=== PATIENT | female | born 1935 | race Caucasian/White ===

== ENCOUNTER 2017-04-11 17:28 | Inpatient (IN) | payer MEDICARE ==
[~2017-04-11] VITALS: Ht 167.6 cm; Wt 56.7 kg
[~2017-04-11 17:28] MED LIST: ACET500T68 PO; ALPR0.25 PO; DONE10TA7 PO; ENOX40DI3 SQ; EZET10TA18 PO; HYDR-2758 PO; LISI-334 PO; MEMA28CA PO; POLY17PO29 PO; PRAV40TA2 PO; SERT100T8 PO
--- NOTE | 2017-04-11 18:38 | EKG ---
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
[2017-04-11 18:39] LABS: BASO % 0 % (0-3); EOS % 1 % (0-3); HEMATOCRIT 41.2 % (36.0-47.0); HEMOGLOBIN 13.8 g/dL (12.0-15.5); LYMPH # 1.1 x10^3/uL (1.0-4.8); LYMPH % 14 % (24-48); MEAN CORPUSCULAR HEMOGLOBIN 35 pg (25-35); MEAN CORPUSCULAR HGB CONC 33 g/dL (31-37); MEAN CORPUSCULAR VOLUME 105 fL (79-100); MONO % 8 % (0-9); NEUT % 78 % (31-73); PLATELET COUNT 272 x10^3/uL (140-400); RED BLOOD COUNT 3.92 x10^6/uL (3.50-5.40); RED CELL DISTRIBUTION WIDTH 13.6 % (11.5-14.5)
[2017-04-11 18:40] LABS: BILIRUBIN,URINE MODERATE (NEG); GLUCOSE,URINE NEGATIVE (NEG); NITRITE,URINE NEGATIVE (NEG); PH,URINE 5.5; PROTEIN,URINE 30 mg/dL (NEG-TRACE)
--- NOTE | 2017-04-11 18:42 | PHYS DOC ---
Past Medical History Past Medical History: Anxiety, Depression, High Cholesterol, Hypertension, Other Additional Past Medical Histor: panick attack Past Surgical History: Hysterectomy, Tonsillectomy, Other Additional Past Surgical Histo: carotid surgery, back surgery, sinus X2,LASIX Alcohol Use: None Drug Use: None Adult General Chief Complaint Chief Complaint: ALTERED MENTAL STATUS HPI HPI Patient is a 82 year old female who presents to the emergency department for evaluation lightheadedness and loss of appetite. Patient was brought to the emergency department by her family. The patient is noted to live by herself. Patient has history of dementia currently an early stage. Patient is on oral medication for treatment. Patient's daughter is present with the patient in the emergency department. Patient states that she does have generalized fatigue and has noted that she has had decreased appetite over the past few weeks. Daughter notes that the patient has been spending a significant amount of time in bed and not taking care of herself in her current situation. The daughters concern that the patient may be dehydrated and does not feel that the patient is safe to be living at home. The patient does agree with this as she states that she does feel weak at this time. Patient denies any pain and has not had any known fevers. Patient states that she has felt unsteady on her feet and has had dizziness but denies any recent falls. Review of Systems Review of Systems Constitutional: Lightheadedness, generalized fatigue, denies fever or chills [] Eyes: Denies change in visual acuity, redness, or eye pain [] HENT: Denies nasal congestion or sore throat [] Respiratory: Denies cough or shortness of breath [] Cardiovascular: Denies chest pain or edema[] GI: Anorexia, denies abdominal pain, nausea, vomiting, bloody stools or diarrhea [] : Denies dysuria or hematuria [] Musculoskeletal: Denies back pain or joint pain [] Integument: Denies rash or skin lesions [] Neurologic: Denies headache, focal weakness or sensory changes [] All other systems were reviewed and found to be within normal limits, except as documented in this note. Allergies Allergies Allergies Coded Allergies Type Severity Reaction Last Updated Verified aspirin Allergy Intermediate 08/16/15 No Physical Exam Physical Exam Constitutional: Alert, afebrile, no acute distress. [] HENT: Normocephalic, atraumatic, bilateral external ears normal, oropharynx dry , no oral exudates, nose normal. [] Eyes: PERRLA, EOMI, conjunctiva normal, no discharge. [] Neck: Normal range of motion, no tenderness, supple, no stridor. [] Cardiovascular:Heart rate regular rhythm, no murmur [] Lungs & Thorax: Bilateral breath sounds clear to auscultation [] Abdomen: Bowel sounds normal, soft, no tenderness, no masses, no pulsatile masses. [] Skin: Warm, dry, no erythema, no rash. [] Back: No tenderness, no CVA tenderness. [] Extremities: No tenderness, no cyanosis, no clubbing, ROM intact, no edema. [] Neurologic: Alert and oriented X 3, normal motor function, normal sensory function, no focal deficits noted. [] Current Patient Data Vital Signs Vital Signs Date Time Temp Pulse Resp B/P (MAP) Pulse Ox O2 Delivery O2 Flow Rate FiO2 04/11/17 18:00 97.9 69 18 152/69 (96) 97 Room Air 97.9 Lab Values Laboratory Tests Test 04/11/17 18:00 04/11/17 18:07 Urine Collection Type Unknown Urine Color Paty Urine Clarity Cloudy Urine pH 5.5 Urine Specific [place] >=1.030 Urine Protein 30 mg/dL (NEG-TRACE) Urine Glucose (UA) Negative mg/dL (NEG) Urine Ketones (Stick) Trace mg/dL (NEG) Urine Blood Negative (NEG) Urine Nitrite Negative (NEG) Urine Bilirubin Moderate (NEG) Urine Urobilinogen Dipstick 1.0 mg/dL (0.2 mg/dL) Urine Leukocyte Esterase Large (NEG) Urine RBC 0 /HPF (0-2) Urine WBC Tntc /HPF (0-4) Urine Transitional Epithelial Cells Mod /LPF Urine Bacteria 0 /HPF (0-FEW) Urine Hyaline Casts Many /HPF Urine Mucus Marked /LPF White Blood Count 8.0 x10^3/uL (4.0-11.0) Red Blood Count 3.92 x10^6/uL (3.50-5.40) Hemoglobin 13.8 g/dL (12.0-15.5) Hematocrit 41.2 % (36.0-47.0) Mean Corpuscular Volume 105 fL (79-100) H Mean Corpuscular Hemoglobin 35 pg (25-35) Mean Corpuscular Hemoglobin Concent 33 g/dL (31-37) Red Cell Distribution Width 13.6 % (11.5-14.5) Platelet Count 272 x10^3/uL (140-400) Neutrophils (%) (Auto) 78 % (31-73) H Lymphocytes (%) (Auto) 14 % (24-48) L Monocytes (%) (Auto) 8 % (0-9) Eosinophils (%) (Auto) 1 % (0-3) Basophils (%) (Auto) 0 % (0-3) Neutrophils # (Auto) 6.3 x10^3uL (1.8-7.7) Lymphocytes # (Auto) 1.1 x10^3/uL (1.0-4.8) Monocytes # (Auto) 0.6 x10^3/uL (0.0-1.1) Eosinophils # (Auto) 0.0 x10^3/uL (0.0-0.7) Basophils # (Auto) 0.0 x10^3/uL (0.0-0.2) Sodium Level 141 mmol/L (136-145) Potassium Level 4.1 mmol/L (3.5-5.1) Chloride Level 103 mmol/L (98-107) Carbon Dioxide Level 27 mmol/L (21-32) Anion Gap 11 (6-14) Blood Urea Nitrogen 29 mg/dL (7-20) H Creatinine 1.3 mg/dL (0.6-1.0) H Estimated GFR (Cockcroft-Gault) 39.0 BUN/Creatinine Ratio 22 (6-20) H Glucose Level 133 mg/dL (70-99) H Calcium Level 9.1 mg/dL (8.5-10.1) Magnesium Level 1.9 mg/dL (1.8-2.4) Total Bilirubin 0.6 mg/dL (0.2-1.0) Aspartate Amino Transferase (AST) 22 U/L (15-37) Alanine Aminotransferase (ALT) 22 U/L (14-59) Alkaline Phosphatase 74 U/L (46-116) Total Protein 7.4 g/dL (6.4-8.2) Albumin 4.0 g/dL (3.4-5.0) Albumin/Globulin Ratio 1.2 (1.0-1.7) Urine Opiates Screen Neg (NEG) Urine Methadone Screen Neg (NEG) Urine Barbiturates Neg (NEG) Urine Phencyclidine Screen Neg (NEG) Urine Amphetamine/Methamphetamine Neg (NEG) Urine Benzodiazepines Screen Pos (NEG) Urine Cocaine Screen Neg (NEG) Urine Cannabinoids Screen Neg (NEG) Urine Ethyl Alcohol Neg (NEG) Laboratory Tests 04/11/17 18:07 Laboratory Tests 04/11/17 18:07 EKG EKG Interpreted by me: Heart rate 61, sinus rhythm, normal intervals, normal axis, no acute ST/T-wave abnormalities present[] Radiology/Procedures Radiology/Procedures Not performed[] Course & Med Decision Making Course & Med Decision Making Pertinent Labs and Imaging studies reviewed. (See chart for details) Patient's lab work shows evidence of dehydration as well as urinary tract infection. Patient started on Rocephin in the emergency department. The patient will continue on IV fluids and Rocephin for treatment. Patient admitted to Dr. Camejo. Eagle Disclaimer Eagle Disclaimer This electronic medical record was generated, in whole or in part, using a voice recognition dictation system. Departure Departure Impression: Primary Impression: Urinary tract infection Additional Impressions: Generalized weakness Dehydration Disposition: ADMITTED INPATIENT Admitting Physician: Other Condition: STABLE Referrals: RUSSELL LAL MD (PCP) Problem Qualifiers Primary Impression: Urinary tract infection Urinary tract infection type: site unspecified Hematuria presence: without hematuria Qualified Codes: N39.0 - Urinary tract infection, site not specified XIMENA DUTTA MD Apr 11, 2017 18:42
[2017-04-11 18:46] LABS: BARBITURATES NEG (NEG); BENZODIAZEPINES POS (NEG); CANNABINOIDS NEG (NEG); COCAINE NEG (NEG); METHADONE NEG (NEG); OPIATES NEG (NEG); PHENCYCLIDINE NEG (NEG)
[2017-04-11 18:54] LABS: RBC,URINE 0 /HPF (0-2); WBC,URINE TNTC /HPF (0-4)
[2017-04-11 18:55] LABS: BACTERIA,URINE 0 /HPF (0-FEW)
[2017-04-11 18:56] LABS: CALCIUM 9.1 mg/dL (8.5-10.1); CREATININE 1.3 mg/dL (0.6-1.0); POTASSIUM 4.1 mmol/L (3.5-5.1)
[2017-04-11 19:05] LABS: ALBUMIN/GLOBULIN RATIO 1.2 (1.0-1.7); MAGNESIUM 1.9 mg/dL (1.8-2.4); TOTAL BILIRUBIN 0.6 mg/dL (0.2-1.0); TOTAL PROTEIN 7.4 g/dL (6.4-8.2)
[2017-04-11] MEDS ORDERED: ACETAMINOPHEN 325 MG TABLET. PO PRN (20:15)
[2017-04-11] MEDS ORDERED: ONDANSETRON PF 4 MG/2 ML VIAL. IV PRN (20:15)
[2017-04-11] MEDS: IV NORMAL SALINE 1000ML BAG 1,000 ML IV SCH (20:36)
[2017-04-11] MEDS: cefTRIAXone IV Push 1 GM VIAL. IVP SCH (22:05)
[2017-04-11 23:00] VITALS: BP 135/60
[2017-04-11] MEDS ORDERED: MEMA1CAP3 (23:03)
[2017-04-11] MEDS ORDERED: EZET10TA26 PO (23:03)
[2017-04-11] MEDS ORDERED: ALPR1TAB6 PO (23:03)
[2017-04-11] MEDS ORDERED: ACETAMINOPHEN 500 MG TABLET PO PRN (23:45)
--- NOTE | 2017-04-12 00:07 | HP ---
ADMIT DATE: 04/11/2017 CHIEF COMPLAINT: Confusion. HISTORY OF PRESENT ILLNESS: The patient is an 82-year-old woman who was brought in by her family with lightheadedness, loss of appetite and increased confusion. The patient actually lives by herself despite having a history of dementia. The patient herself relates that she has been fatigued, decreased appetite over the past few weeks, although this may actually been more months and years. Daughter feels like the patient is not safe living at home and the patient at this time agrees. The patient herself denies any fevers, chills, focal weakness, but does have generalized weakness with unsteadiness on her feet as well as some dizziness, but denies any recent fall. In the Emergency Room, she was diagnosed with dehydration as well as signs of UTI and is therefore admitted for further management. PAST MEDICAL HISTORY: Anxiety, depression and hyperlipidemia. Pelvic fracture after fall. PAST SURGICAL HISTORY: She is status post hysterectomy. FAMILY HISTORY: Positive for diabetes. SOCIAL HISTORY: Lives by herself. No toxic habits. Of note, all histories were obtained from chart as the patient cannot recall details. ALLERGIES: ASPIRIN. MEDICATIONS: MAR reconciled with home medications. REVIEW OF SYSTEMS: The patient is pleasantly confused, cannot remember why she is here. She denies any symptoms in entire organ system review. PHYSICAL EXAMINATION: VITAL SIGNS: From today show a blood pressure of 152/69, heart rate of 69, respiratory rate at 18, she is afebrile. GENERAL: This is an 82-year-old malnourished, frail appearing woman, alert, not oriented to time or place, in no acute distress. HEENT: Shows no scleral icterus. NECK: Supple. LUNGS: Clear bilaterally. HEART: Regular rate and rhythm without any murmurs. ABDOMEN: Positive bowel sounds. EXTREMITIES: Show no edema. SKIN: Warm, soft and dry without any rash. LABORATORY DATA: CBC with a WBC of 8.0, hemoglobin 13.8, MCV of 105, platelets of 272. Chemistries with a BUN and creatinine of 29 and 1.3, normal electrolytes, normal LFTs. Tox screen positive for benzodiazepines. Urine with TNTC wbc's, but 0 bacteria and marked mucus and moderate transitional epithelial cells. Specific gravity is greater than 1.030. IMAGING STUDIES: None. ASSESSMENT AND PLAN: The patient is an 82-year-old woman who is slowly failing at home. The patient and family feel her to be unsafe alone by herself. She is brought in by family and has been found with a potential urinary tract infection. We will get case management involved. With acute issues, there may be a component of encephalopathy on top of her chronic dementia. Also, we will have Occupational Therapy, Physical Therapy evaluate her as to her safety level. Suspect she may benefit from rehabilitation before a permanent placement is found for her. I will continue all her home medications. We will hold off on standing order benzodiazepine in favor of p.r.n. only. EDDIE DALEY MD DR: UR/nts JOB#: [id number] / [id number] RUSSELL Gamino MD MTDD
[2017-04-12 03:00] VITALS: BP 133/63
[2017-04-12 04:19] LABS: BASO % 0 % (0-3); EOS % 1 % (0-3); HEMATOCRIT 35.8 % (36.0-47.0); HEMOGLOBIN 12.1 g/dL (12.0-15.5); LYMPH # 1.3 x10^3/uL (1.0-4.8); LYMPH % 19 % (24-48); MEAN CORPUSCULAR HEMOGLOBIN 35 pg (25-35); MEAN CORPUSCULAR HGB CONC 34 g/dL (31-37); MEAN CORPUSCULAR VOLUME 105 fL (79-100); MONO % 9 % (0-9); NEUT % 71 % (31-73); PLATELET COUNT 207 x10^3/uL (140-400); RED BLOOD COUNT 3.43 x10^6/uL (3.50-5.40); RED CELL DISTRIBUTION WIDTH 13.7 % (11.5-14.5); WHITE BLOOD COUNT 7.1 x10^3/uL (4.0-11.0)
[2017-04-12 04:39] LABS: CALCIUM 8.4 mg/dL (8.5-10.1); GFR 52.8; POTASSIUM 3.9 mmol/L (3.5-5.1)
[2017-04-12] MEDS: IV NORMAL SALINE 1000ML BAG 1,000 ML IV SCH (05:49)
[2017-04-12 07:00] VITALS: BP 118/65
[2017-04-12] MEDS: EZETIMIBE 10 MG TABLET. PO SCH (09:29)
[2017-04-12] MEDS: SERTRALINE 50 MG TABLET. PO SCH (09:29)
[2017-04-12] MEDS: POLYETHYLENE GLYCOL 3350 17 GM PACKET. PO SCH (09:29)
[2017-04-12] MEDS: LISINOPRIL 20 MG TABLET PO SCH (09:29)
[2017-04-12 11:00] VITALS: BP 90/49
[2017-04-12] MEDS ORDERED: ACETAMINOPHEN 325 MG TABLET. PO PRN (12:27)
[2017-04-12] MEDS ORDERED: CEFPODOXIME PROXETIL 100 MG TABLET. PO SCH (13:00)
--- NOTE | 2017-04-12 13:01 | PDOC ---
PROGRESS NOTES Chief Complaint Chief Complaint FTT ASSESSMENT AND PLAN: 1. FTT: OT/PT/nutrition silvana. SW for placement 2. Dementia: advanced. pleasantly confused and solidly living in her 20s- 30s. minimize sedatives. 3. ?UTI: urin cult pending. empiric ceftriax History of Present Illness History of Present Illness pleasantly confused. no c/o. does recall that she is here to go to rehab as she can't function at home anymore Vitals Vitals Vital Signs Date Time Temp Pulse Resp B/P (MAP) Pulse Ox O2 Delivery O2 Flow Rate FiO2 04/12/17 11:00 97.4 55 18 90/49 (63) 99 Room Air 97.4 Physical Exam General: Alert, Cooperative, No acute distress Heart: Regular rate Lungs: Wheezing Labs LABS Laboratory Tests Test 04/11/17 18:00 04/11/17 18:07 04/12/17 04:05 Urine Collection Type Unknown Urine Color Paty Urine Clarity Cloudy Urine pH 5.5 Urine Specific [place] >=1.030 Urine Protein 30 mg/dL (NEG-TRACE) Urine Glucose (UA) Negative mg/dL (NEG) Urine Ketones (Stick) Trace mg/dL (NEG) Urine Blood Negative (NEG) Urine Nitrite Negative (NEG) Urine Bilirubin Moderate (NEG) Urine Urobilinogen Dipstick 1.0 mg/dL (0.2 mg/dL) Urine Leukocyte Esterase Large (NEG) Urine RBC 0 /HPF (0-2) Urine WBC Tntc /HPF (0-4) Urine Transitional Epithelial Cells Mod /LPF Urine Bacteria 0 /HPF (0-FEW) Urine Hyaline Casts Many /HPF Urine Mucus Marked /LPF White Blood Count 8.0 x10^3/uL (4.0-11.0) 7.1 x10^3/uL (4.0-11.0) Red Blood Count 3.92 x10^6/uL (3.50-5.40) 3.43 x10^6/uL (3.50-5.40) Hemoglobin 13.8 g/dL (12.0-15.5) 12.1 g/dL (12.0-15.5) Hematocrit 41.2 % (36.0-47.0) 35.8 % (36.0-47.0) Mean Corpuscular Volume 105 fL (79-100) 105 fL (79-100) Mean Corpuscular Hemoglobin 35 pg (25-35) 35 pg (25-35) Mean Corpuscular Hemoglobin Concent 33 g/dL (31-37) 34 g/dL (31-37) Red Cell Distribution Width 13.6 % (11.5-14.5) 13.7 % (11.5-14.5) Platelet Count 272 x10^3/uL (140-400) 207 x10^3/uL (140-400) Neutrophils (%) (Auto) 78 % (31-73) 71 % (31-73) Lymphocytes (%) (Auto) 14 % (24-48) 19 % (24-48) Monocytes (%) (Auto) 8 % (0-9) 9 % (0-9) Eosinophils (%) (Auto) 1 % (0-3) 1 % (0-3) Basophils (%) (Auto) 0 % (0-3) 0 % (0-3) Neutrophils # (Auto) 6.3 x10^3uL (1.8-7.7) 5.0 x10^3uL (1.8-7.7) Lymphocytes # (Auto) 1.1 x10^3/uL (1.0-4.8) 1.3 x10^3/uL (1.0-4.8) Monocytes # (Auto) 0.6 x10^3/uL (0.0-1.1) 0.7 x10^3/uL (0.0-1.1) Eosinophils # (Auto) 0.0 x10^3/uL (0.0-0.7) 0.0 x10^3/uL (0.0-0.7) Basophils # (Auto) 0.0 x10^3/uL (0.0-0.2) 0.0 x10^3/uL (0.0-0.2) Sodium Level 141 mmol/L (136-145) 142 mmol/L (136-145) Potassium Level 4.1 mmol/L (3.5-5.1) 3.9 mmol/L (3.5-5.1) Chloride Level 103 mmol/L (98-107) 107 mmol/L (98-107) Carbon Dioxide Level 27 mmol/L (21-32) 27 mmol/L (21-32) Anion Gap 11 (6-14) 8 (6-14) Blood Urea Nitrogen 29 mg/dL (7-20) 27 mg/dL (7-20) Creatinine 1.3 mg/dL (0.6-1.0) 1.0 mg/dL (0.6-1.0) Estimated GFR (Cockcroft-Gault) 39.0 52.8 BUN/Creatinine Ratio 22 (6-20) Glucose Level 133 mg/dL (70-99) 119 mg/dL (70-99) Calcium Level 9.1 mg/dL (8.5-10.1) 8.4 mg/dL (8.5-10.1) Magnesium Level 1.9 mg/dL (1.8-2.4) Total Bilirubin 0.6 mg/dL (0.2-1.0) Aspartate Amino Transf (AST/SGOT) 22 U/L (15-37) Alanine Aminotransferase (ALT/SGPT) 22 U/L (14-59) Alkaline Phosphatase 74 U/L (46-116) Total Protein 7.4 g/dL (6.4-8.2) Albumin 4.0 g/dL (3.4-5.0) Albumin/Globulin Ratio 1.2 (1.0-1.7) Urine Opiates Screen Neg (NEG) Urine Methadone Screen Neg (NEG) Urine Barbiturates Neg (NEG) Urine Phencyclidine Screen Neg (NEG) Urine Amphetamine/Methamphetamine Neg (NEG) Urine Benzodiazepines Screen Pos (NEG) Urine Cocaine Screen Neg (NEG) Urine Cannabinoids Screen Neg (NEG) Urine Ethyl Alcohol Neg (NEG) EDDIE DALEY MD Apr 12, 2017 13:01
[2017-04-12 15:00] VITALS: BP 120/56
[2017-04-12] MEDS: ALPRAZolam 0.25 MG TABLET PO PRN ×2 (15:40→19:46)
[2017-04-12 19:21] VITALS: BP 92/48
[2017-04-12] MEDS: cefTRIAXone IV Push 1 GM VIAL. IVP SCH ×2 (19:45→22:35)
[2017-04-12] MEDS: HYDROcodone/APAP 5/325MG 1 TAB TABLET PO PRN (19:46)
[2017-04-12] MEDS: ATORVASTATIN CALCIUM 10 MG TABLET. PO SCH (19:46)
[2017-04-12] MEDS: LACTOBACILLUS RHAMNOSUS GG 1 CAPSULE. PO SCH (19:47)
[2017-04-12] MEDS ORDERED: HALOPERIDOL LACTATE 5 MG/ML VIAL. IVP PRN (21:00)
[2017-04-12 23:19] VITALS: BP 85/51
[2017-04-13] VITALS (9 sets, daily range): BP systolic 81–126; BP diastolic 41–102
[2017-04-13] MEDS: LACTOBACILLUS RHAMNOSUS GG 1 CAPSULE. PO SCH ×2 (08:16→20:54)
[2017-04-13] MEDS: LISINOPRIL 20 MG TABLET PO SCH (08:16)
[2017-04-13] MEDS: EZETIMIBE 10 MG TABLET. PO SCH (08:16)
[2017-04-13] MEDS: POLYETHYLENE GLYCOL 3350 17 GM PACKET. PO SCH (08:16)
[2017-04-13] MEDS: SERTRALINE 50 MG TABLET. PO SCH (08:16)
[2017-04-13] MEDS ORDERED: IV NORMAL SALINE 1000ML BAG 1,000 ML IV ONE ×2 (11:45→14:30)
--- NOTE | 2017-04-13 13:53 | PDOC ---
PROGRESS NOTES Chief Complaint Chief Complaint FTT ASSESSMENT AND PLAN: 1. FTT: OT/PT/nutrition silvana. SW for placement 2. Dementia: advanced. pleasantly confused and solidly living in her 20s- 30s. minimize sedatives. 3. ?UTI: urine cult pending. empiric ceftriax 4. Orthostasis: IVF bolus; recheck post. encourage PO intake; hold BP meds History of Present Illness History of Present Illness pleasantly confused. daughter at bed side. sl dizzy with standing up. Vitals Vitals Vital Signs Date Time Temp Pulse Resp B/P (MAP) Pulse Ox O2 Delivery O2 Flow Rate FiO2 04/13/17 12:44 93/59 (70) 04/13/17 11:19 98 04/13/17 08:00 Room Air 04/13/17 07:00 98.1 17 96 98.1 Physical Exam General: Alert, Cooperative, No acute distress Heart: Regular rate Lungs: Wheezing Extremities: No edema Skin: No rashes EDDIE DALEY MD Apr 13, 2017 13:53
[2017-04-13] MEDS: ATORVASTATIN CALCIUM 10 MG TABLET. PO SCH (20:54)
[2017-04-13] MEDS: HYDROcodone/APAP 5/325MG 1 TAB TABLET PO PRN (20:54)
[2017-04-14 03:31] VITALS: BP 129/86
[2017-04-14 07:34] VITALS: BP 101/59
[2017-04-14] MEDS: EZETIMIBE 10 MG TABLET. PO SCH (08:53)
[2017-04-14] MEDS: SERTRALINE 50 MG TABLET. PO SCH (08:53)
[2017-04-14] MEDS: POLYETHYLENE GLYCOL 3350 17 GM PACKET. PO SCH (08:53)
[2017-04-14] MEDS: LACTOBACILLUS RHAMNOSUS GG 1 CAPSULE. PO SCH ×2 (08:53→21:27)
[2017-04-14] MEDS: LISINOPRIL 20 MG TABLET PO SCH (08:54)
[2017-04-14 10:43] VITALS: BP 96/49
[2017-04-14] MEDS ORDERED: HYDR-2758 PO (14:03)
[2017-04-14 15:18] VITALS: BP 101/56
[2017-04-14 19:44] VITALS: BP 96/48
[2017-04-14] MEDS: ATORVASTATIN CALCIUM 10 MG TABLET. PO SCH (21:27)
[2017-04-14] MEDS: HYDROcodone/APAP 5/325MG 1 TAB TABLET PO PRN (21:27)
[2017-04-14 23:52] VITALS: BP 114/71
[2017-04-15 03:57] VITALS: BP 117/74
[2017-04-15 07:20] VITALS: BP 105/65
[2017-04-15] MEDS: POLYETHYLENE GLYCOL 3350 17 GM PACKET. PO SCH (09:00)
[2017-04-15] MEDS: EZETIMIBE 10 MG TABLET. PO SCH (09:16)
[2017-04-15] MEDS: LISINOPRIL 20 MG TABLET PO SCH (09:16)
[2017-04-15] MEDS: SERTRALINE 50 MG TABLET. PO SCH (09:17)
[2017-04-15] MEDS: LACTOBACILLUS RHAMNOSUS GG 1 CAPSULE. PO SCH ×2 (09:17→21:25)
[2017-04-15 10:40] VITALS: BP 93/42
[2017-04-15] MEDS ORDERED: FLUDROCORTISONE 0.1 MG TABLET PO SCH (12:00)
[2017-04-15 14:36] VITALS: BP 76/47
[2017-04-15] MEDS ORDERED: IV NORMAL SALINE 500ML BAG 500 ML IV ONE (14:45)
--- NOTE | 2017-04-15 16:43 | PDOC ---
PROGRESS NOTES Chief Complaint Chief Complaint FTT Plz note: late entry; pt seen with plansfor d/c, but aborted late 2/2 nonacceptance in [place] ASSESSMENT AND PLAN: 1. FTT: OT/PT rec for rehab. DOTTIE workig on placement at 2. Dementia: advanced. pleasantly confused 3. ?UTI: urine cult neg empiric ceftriax stopped 4. Orthostasis: IVF bolus; recheck post. encourage PO intake; hold BP meds History of Present Illness History of Present Illness no dizziness, no LAYNE or other c/o Vitals Vitals Vital Signs Date Time Temp Pulse Resp B/P (MAP) Pulse Ox O2 Delivery O2 Flow Rate FiO2 04/15/17 14:36 97.6 73 18 76/47 (57) 98 Room Air 97.6 Physical Exam General: Alert, Cooperative, No acute distress Heart: Regular rate Lungs: Wheezing Extremities: No edema Skin: No rashes Nutrition Consultation Dietary Evaluation: Recommendations by RD: Increase Calorie Intake, Protein supplementation Comments: boost plus tid Expected Outcomes/Goals: to meet > 75% est nutr needs Malnutrition Findings: Weight Status: Appropriate EDDIE DALEY MD Apr 15, 2017 16:43
--- NOTE | 2017-04-15 16:48 | PDOC ---
PROGRESS NOTES Chief Complaint Chief Complaint FTT ASSESSMENT AND PLAN: 1. FTT: OT/PT rec for rehab. SW working on placement at 2. Dementia: advanced. pleasantly confused 3. ?UTI: urine cult neg, empiric ceftriax stopped 4. hypotension: asymptomatic. hold antihypertensives; start midodrine History of Present Illness History of Present Illness doing well. no c/o Vitals Vitals Vital Signs Date Time Temp Pulse Resp B/P (MAP) Pulse Ox O2 Delivery O2 Flow Rate FiO2 04/15/17 14:36 97.6 73 18 76/47 (57) 98 Room Air 97.6 Physical Exam General: Alert, Cooperative, No acute distress Heart: Regular rate Lungs: Wheezing Extremities: No edema Skin: No rashes Comment Review of Relevant I have reviewed the following items violette (where applicable) has been applied. Labs Microbiology 04/11/17 Urine Culture - Final, Complete 04/11/17 Urine Culture Result 1 (FELICITA) - Final, Complete Medications Current Medications Ondansetron HCl (Zofran) 4 mg PRN Q8HRS PRN IV NAUSEA/VOMITING; Start 04/11/17 at 20:15; Stop 04/12/17 at 20:14; Status DC Sodium Chloride 1,000 ml @ 125 mls/hr Q8H IV Last administered on 04/12/17t 05:49; Start 04/11/17 at 21:00; Stop 04/12/17 at 15:16; Status DC Acetaminophen (Tylenol) 650 mg PRN Q4HRS PRN PO FEVER; Start 04/11/17 at 20:15 ; Stop 04/12/17 at 12:27; Status DC Ceftriaxone Sodium 1 gm/ Dextrose 50 ml @ 100 mls/hr Q24H IV ; Start 04/11/17 at 20:15; Status UNV Ceftriaxone Sodium (Rocephin) 1 gm Q24H IVP Last administered on 04/12/17t 22: 35; Start 04/11/17 at 21:00; Stop 04/13/17 at 15:00; Status DC Acetaminophen (Tylenol) 650 mg PRN Q6HRS PRN PO MILD PAIN; Start 04/11/17 at 23 :45; Stop 04/12/17 at 12:27; Status DC Alprazolam (Xanax) 0.25 mg TID PRN PRN PO ANXIETY / AGITATION Last administered on 04/12/17 19:46; Start 04/11/17 at 23:45 EZETIMIBE (Zetia) 10 mg DAILY PO Last administered on 04/15/17 09:16; Start 04/12/17 at 09:00 Acetaminophen/ Hydrocodone Bitart (Lortab 5/325) 1 tab PRN Q6HRS PRN PO MODERATE PAIN Last administered on 04/14/17 21:27; Start 04/11/17 at 23:45 Lisinopril (Prinivil) 20 mg DAILY PO Last administered on 04/12/17 09:29; Start 04/12/17 at 09:00; Stop 04/13/17 at 13:50; Status DC Polyethylene Glycol (miraLAX PACKET) 17 gm DAILY PO Last administered on 08:53; Start 04/12/17 at 09:00 Atorvastatin Calcium (Lipitor) 10 mg QHS PO Last administered on 04/14/17 21: 27; Start 04/12/17 at 21:00 Sertraline HCl (Zoloft) 100 mg DAILY PO Last administered on 04/15/17 09:17; Start 04/12/17 at 09:00 Acetaminophen (Tylenol) 650 mg PRN Q6HRS PRN PO MILD PAIN / TEMP; Start at 12:27 Cefpodoxime Proxetil (Vantin) 100 mg BID PO ; Start 04/12/17 at 13:00; Stop at 13:01; Status DC Lactobacillus Rhamnosus (Culturelle) 1 cap BID PO Last administered on 09:17; Start 04/12/17 at 21:00 Lorazepam (Ativan) 1 mg PRN Q2HRS PRN IV ANXIETY / AGITATION Last administered on 04/12/17 21:59; Start 04/12/17 at 21:00 Haloperidol Lactate (Haldol) 5 mg PRN Q8HRS PRN IVP AGITATION; Start 04/12/17 at 21:00 Sodium Chloride 1,000 ml @ 0 mls/hr 1X ONCE IV Last administered on 11:45; Start 04/13/17 at 11:45; Stop 04/13/17 at 11:46; Status DC Lisinopril (Prinivil) 20 mg DAILY PO Last administered on 04/15/17 09:16; Start 04/14/17 at 09:00 Sodium Chloride 1,000 ml @ 0 mls/hr 1X ONCE IV Last administered on 14:22; Start 04/13/17 at 14:30; Stop 04/13/17 at 14:31; Status DC Fludrocortisone Acetate (Florinef) 0.1 mg BID PO Last administered on 12:17; Start 04/15/17 at 12:00; Stop 04/15/17 at 15:50; Status DC Sodium Chloride 500 ml @ 500 mls/hr 1X ONCE IV Last administered on 14:45; Start 04/15/17 at 14:45; Stop 04/15/17 at 15:44; Status DC Midodrine (Proamatine) 10 mg [id number] PO ; Start 04/15/17 at 18:00; Stop at 18:00; Status DC Midodrine (Proamatine) 10 mg [id number] PO ; Start 04/15/17 at 18:00 Active Scripts Active Hydrocodone-Apap 5-325 (Hydrocodone Bit/Acetaminophen) 1 Each Tablet 1 Tab PO PRN Q6HRS PRN Miralax (Polyethylene Glycol 3350) 17 Gm Powd.pack 1 Packet PO DAILY Xanax (Alprazolam) 0.25 Mg Tablet 0.25 Mg PO TID PRN PRN Reported Namzaric 28 mg-10 mg Capsule (Memantine HCl/Donepezil HCl) 1 Each Cap.spr.24 Alprazolam 1 Mg Tablet 1 Mg PO DAILY Ezetimibe 10 Mg Tablet 10 Mg PO DAILY Acetaminophen 500 Mg Tablet 650 Mg PO PRN Q6HRS PRN Pravastatin Sodium 40 Mg Tablet 1 Tab PO DAILY Sertraline Hcl 100 Mg Tablet 100 Mg PO DAILY Lisinopril 20 Mg Tablet 1 Tab PO DAILY Vitals/I & O Vital Sign - Last 24 Hours 04/14/17 04/14/17 04/14/17 04/14/17 19:44 20:00 21:27 22:53 Temp 98.3 98.3 Pulse 87 Resp 16 B/P (MAP) 96/48 (64) Pulse Ox 96 96 96 O2 Delivery Room Air Room Air Room Air Room Air 04/14/17 04/15/17 04/15/17 04/15/17 23:52 03:57 07:20 08:00 Temp 98.1 98.3 97.9 98.1 98.3 97.9 Pulse 103 76 93 Resp 16 16 17 B/P (MAP) 114/71 (85) 117/74 (88) 105/65 (78) Pulse Ox 96 97 97 O2 Delivery Room Air Room Air Room Air Room Air 04/15/17 04/15/17 04/15/17 09:16 10:40 14:36 Temp 97.4 97.6 97.4 97.6 Pulse 93 75 73 Resp 17 18 B/P (MAP) 105/65 93/42 (59) 76/47 (57) Pulse Ox 100 98 O2 Delivery Room Air Room Air Intake and Output 04/14/17 04/14/17 04/15/17 15:00 23:00 07:00 Intake Total 440 ml 600 ml 300 ml Balance 440 ml 600 ml 300 ml Nutrition Consultation Dietary Evaluation: Recommendations by RD: Increase Calorie Intake, Protein supplementation Comments: boost plus tid Expected Outcomes/Goals: to meet > 75% est nutr needs Malnutrition Findings: Weight Status: Appropriate EDDIE DALEY MD Apr 15, 2017 16:48
[2017-04-15] MEDS: MIDODRINE 5 MG TABLET PO SCH (17:02)
[2017-04-15] MEDS ORDERED: MIDODRINE 5 MG TABLET PO SCH (18:00)
[2017-04-15 19:36] VITALS: BP 95/52
[2017-04-15] MEDS: ATORVASTATIN CALCIUM 10 MG TABLET. PO SCH (21:25)
[2017-04-15 23:41] VITALS: BP 124/64
[2017-04-16 03:30] VITALS: BP 102/61
[2017-04-16 05:24] LABS: BASO % 1 % (0-3); EOS % 2 % (0-3); HEMATOCRIT 34.8 % (36.0-47.0); HEMOGLOBIN 11.7 g/dL (12.0-15.5); LYMPH # 1.8 x10^3/uL (1.0-4.8); LYMPH % 25 % (24-48); MEAN CORPUSCULAR HEMOGLOBIN 35 pg (25-35); MEAN CORPUSCULAR HGB CONC 34 g/dL (31-37); MEAN CORPUSCULAR VOLUME 105 fL (79-100); MONO % 9 % (0-9); NEUT % 63 % (31-73); PLATELET COUNT 188 x10^3/uL (140-400); RED BLOOD COUNT 3.31 x10^6/uL (3.50-5.40); RED CELL DISTRIBUTION WIDTH 13.4 % (11.5-14.5); WHITE BLOOD COUNT 7.1 x10^3/uL (4.0-11.0)
[2017-04-16] MEDS: MIDODRINE 5 MG TABLET PO SCH ×2 (05:37→14:26)
[2017-04-16 06:02] LABS: CALCIUM 7.8 mg/dL (8.5-10.1); CREATININE 0.9 mg/dL (0.6-1.0); GFR 59.7; POTASSIUM 4.3 mmol/L (3.5-5.1)
[2017-04-16 07:22] VITALS: BP 91/64
[2017-04-16] MEDS: EZETIMIBE 10 MG TABLET. PO SCH (09:04)
[2017-04-16] MEDS: LACTOBACILLUS RHAMNOSUS GG 1 CAPSULE. PO SCH (09:04)
[2017-04-16] MEDS: SERTRALINE 50 MG TABLET. PO SCH (09:05)
[2017-04-16] MEDS: POLYETHYLENE GLYCOL 3350 17 GM PACKET. PO SCH (09:05)
[2017-04-16 10:35] VITALS: BP 87/45
[2017-04-16 10:40] VITALS: BP 84/51
[2017-04-16 10:45] VITALS: BP 88/52
--- NOTE | 2017-04-16 12:13 | PDOC ---
PROGRESS NOTES Chief Complaint Chief Complaint FTT ASSESSMENT AND PLAN: 1. FTT: OT/PT rec for rehab. SW working on placement at 2. Dementia: advanced. pleasantly confused 3. ?UTI: urine cult neg, empiric ceftriax stopped 4. hypotension: asymptomatic. improved. no orthostasis. off antihypertensives ; on midodrine 5. Dispo: rehab today History of Present Illness History of Present Illness doing well. no c/o Vitals Vitals Vital Signs Date Time Temp Pulse Resp B/P (MAP) Pulse Ox O2 Delivery O2 Flow Rate FiO2 04/16/17 10:45 69 16 88/52 (64) 99 Room Air 04/16/17 10:35 98.0 98.0 Physical Exam General: Alert, Cooperative, No acute distress Heart: Regular rate Lungs: Wheezing Extremities: No edema Skin: No rashes Labs LABS Laboratory Tests Test 04/16/17 05:10 White Blood Count 7.1 x10^3/uL (4.0-11.0) Red Blood Count 3.31 x10^6/uL (3.50-5.40) Hemoglobin 11.7 g/dL (12.0-15.5) Hematocrit 34.8 % (36.0-47.0) Mean Corpuscular Volume 105 fL (79-100) Mean Corpuscular Hemoglobin 35 pg (25-35) Mean Corpuscular Hemoglobin Concent 34 g/dL (31-37) Red Cell Distribution Width 13.4 % (11.5-14.5) Platelet Count 188 x10^3/uL (140-400) Neutrophils (%) (Auto) 63 % (31-73) Lymphocytes (%) (Auto) 25 % (24-48) Monocytes (%) (Auto) 9 % (0-9) Eosinophils (%) (Auto) 2 % (0-3) Basophils (%) (Auto) 1 % (0-3) Neutrophils # (Auto) 4.5 x10^3uL (1.8-7.7) Lymphocytes # (Auto) 1.8 x10^3/uL (1.0-4.8) Monocytes # (Auto) 0.7 x10^3/uL (0.0-1.1) Eosinophils # (Auto) 0.1 x10^3/uL (0.0-0.7) Basophils # (Auto) 0.0 x10^3/uL (0.0-0.2) Sodium Level 142 mmol/L (136-145) Potassium Level 4.3 mmol/L (3.5-5.1) Chloride Level 109 mmol/L (98-107) Carbon Dioxide Level 25 mmol/L (21-32) Anion Gap 8 (6-14) Blood Urea Nitrogen 19 mg/dL (7-20) Creatinine 0.9 mg/dL (0.6-1.0) Estimated GFR (Cockcroft-Gault) 59.7 Glucose Level 95 mg/dL (70-99) Calcium Level 7.8 mg/dL (8.5-10.1) Nutrition Consultation Dietary Evaluation: Recommendations by RD: Increase Calorie Intake, Protein supplementation Comments: boost plus tid Expected Outcomes/Goals: to meet > 75% est nutr needs Malnutrition Findings: Weight Status: Appropriate EDDIE DALEY MD Apr 16, 2017 12:13
[2017-04-16 14:41] VITALS: BP 103/51
--- NOTE | 2017-04-19 15:13 | DS ---
DATE OF DISCHARGE: 04/16/2017 CHIEF COMPLAINT: Failure to thrive. HOSPITAL COURSE: The patient is an 82-year-old cachectic woman, presenting from home on the urging of her family because of weakness and inability to take care of herself. OT, PT evaluated the patient and recommended rehabilitation. She was found significantly demented, although pleasantly confused. A urinary tract infection was suspected at admit, but proven not present and empiric antibiotics were stopped. She did have hypotension, which, however, was asymptomatic. She was started on midodrine for this. When a rehabilitation bed was available, she was discharged. PHYSICAL EXAM: VS: stable GEN: alert, NAD PULM: clear CV: RRR ABD: BS+, SNT EXTR: no edema DISCHARGE DIAGNOSES: Failure to thrive, hypotension. DISCHARGE DISPOSITION: To rehab. DISCHARGE CONDITION: Improved. DISCHARGE MEDICATIONS: Please refer to MAR. DISCHARGE INSTRUCTIONS: The patient will follow up with PCP upon return to home. Greater than 30 minutes were spent in arranging discharge. EDDIE DALEY MD DR: PAM/nts JOB#: [id number] / [id number] BRINDA
== END 2017-04-16 16:00 | DRG 689 ==
LOC: ER 17:28 → 6 SOUTH 19:30
PROVIDERS: ADMIT Internal Medicine Hematology & Oncology; ATTEND Internal Medicine Hematology & Oncology
DX: N39.0 Urinary tract infection, site not specified (principal); G93.40 Encephalopathy, unspecified; I95.9 Hypotension, unspecified; E86.0 Dehydration; F03.90 Unspecified dementia, unspecified severity, without behavioral disturbance, psychotic disturbance, mood disturbance, and anxiety; E78.00 Pure hypercholesterolemia, unspecified; E78.5 Hyperlipidemia, unspecified; I10 Essential (primary) hypertension; R62.7 Adult failure to thrive; Z83.3 Family history of diabetes mellitus; Z90.710 Acquired absence of both cervix and uterus; F32.9 Major depressive disorder, single episode, unspecified; F41.9 Anxiety disorder, unspecified; Z88.6 Allergy status to analgesic agent
CPT/HCPCS: 36415; 80048; 80053; 80307; 81001; 83735; 85025; 87086; 93005; J0696; J2060; J7030; J7040; 97110; 97530; 97535; 99285-25; G0479

== ENCOUNTER → 2019-04-12 | Outpatient (CLI) | payer MEDICARE ==
[2018-10-15 14:00] VITALS: BP 136/63
[~2019-04-12] MED LIST changes: +ALPR1TAB6 PO; +CLOP75TA PO; -EZET10TA18 PO; +EZET10TA20 PO; +EZET10TA48 PO; -HYDR-2758 PO; +HYDR-2761 PO; +MEMA1CAP3; +METO-239 PO; +Pantoprazole PO
--- NOTE | 2019-04-13 09:13 | RAD ---
Examination: CT CHEST WO CONTRAST History: Lung nodule Comparison/Correlation: 10/15/2018 CT chest without contrast, CT of the head and cervical spine without contrast 08/16/2015 Findings: Axial images of the chest were obtained without contrast. Sagittal and coronal reformatted images were provided. Mild right main bronchomalacia is present. Calcified pleural plaques are present at the anterior right lower lung field. Mild right posterior lung base atelectasis or interstitial infiltrate is present. No pneumothorax. No pleural or pericardial effusion. Coronary arterial calcification is noted. Right upper lung field 0.4 cm diameter somewhat ill-defined nodule on axial image 41 at the apical level is unchanged. Moderate-sized hiatal hernia is present. Diverticulosis of the colon is partially seen. Thoracic spine vertebral body hemangiomas are again seen. Impression: Hiatal hernia. No suspicious pulmonary nodule or mass lesion in the interval. Right apical pulmonary nodule described on 10/15/2018 is stable upon correlation with 08/16/2015 CT abdomen cervical spine without contrast exam. Right lateral basilar groundglass infiltrate or atelectasis is new in the interval. Considerable follow-up to assess for resolution. PQRS Compliance Statement: One or more of the following individualized dose reduction techniques were utilized for this examination: 1. Automated exposure control 2. Adjustment of the mA and/or kV according to patient size 3. Use of iterative reconstruction technique Electronically signed by: James Haywood MD (04/13/2019 9:10 AM) [facility]
== END ==
LOC: CT 09:20
PROVIDERS: ATTEND Internal Medicine Pulmonary Disease
DX: R91.1 Solitary pulmonary nodule (principal); K44.9 Diaphragmatic hernia without obstruction or gangrene; J98.09 Other diseases of bronchus, not elsewhere classified; J98.4 Other disorders of lung; I25.10 Atherosclerotic heart disease of native coronary artery without angina pectoris; D18.09 Hemangioma of other sites; K57.30 Diverticulosis of large intestine without perforation or abscess without bleeding; I10 Essential (primary) hypertension
CPT/HCPCS: 71250

== ENCOUNTER → 2019-06-07 | Outpatient (CLI) | payer MEDICARE, MEDICAID ==
[2018-10-15 14:00] VITALS: BP 136/63
--- NOTE | 2019-06-07 12:53 | CARD ---
MR#: [id number] Date of Study: 06/07/2019 Ordering Physician: ELLIOTT LÓPEZ, Referring Physician: ELLIOTT LÓPEZ, Tech: Roberta Villasenor APPROVED REPORT EXAM: Two-dimensional and M-mode echocardiogram with Doppler and color Doppler. Other Information Quality : AverageHR: 54bpm INDICATION Non STEMI 2D DIMENSIONS RVDd3.4 (2.9-3.5cm)Left Atrium(2D)3.2 (1.6-4.0cm) IVSd1.2 (0.7-1.1cm)Aortic Root(2D)3.5 (2.0-3.7cm) LVDd5.2 (3.9-5.9cm)LVOT Diameter2.0 (1.8-2.4cm) PWd1.2 (0.7-1.1cm)LVDs3.7 (2.5-4.0cm) FS (%) 30.2 %SV75.3 ml LVEF(%)57.2 (>50%) Aortic Valve AoV Peak Sumit.150.9cm/sAoV VTI36.6cm AO Peak GR.9.1mmHgLVOT Peak Sumit.109.3cm/s LVOT VTI 28.87cmAO Mean GR.5mmHg DESMOND (VMAX)1.60kb3PNW (VTI)2.38cm2 Mitral Valve MV E Uclhzswi53.8cm/sMV DECEL [id number] MV A Pquvhbho80.1cm/sMV E Mean Gr.2mmHg MV VED74xzS/A Ratio1.2 MVA (PHT)3.21cm2 TDI E/Lateral E'9.8E/Medial E'10.4 Pulmonary Valve PV Peak Pekoiaww79.9cm/sPV Peak Grad.3mmHg Tricuspid Valve TR P. Burrruyf177ey/sRAP [id number] TR Peak Gr.73imAbKJQO72zkKa Pulmonary Vein S1 Cpycgowe43.7cm/sD2 Brusuvvz40.6cm/s PVa [id number] LEFT VENTRICLE The left ventricle is normal size. There is mild concentric left ventricular hypertrophy. The left ve ntricular systolic function is normal and the ejection fraction is within normal range. The Ejection Fraction is 50-55%. There is normal LV segmental wall motion. Transmitral Doppler flow pattern is Gra de II-pseudonormal filling dynamics. RIGHT VENTRICLE The right ventricle is normal size. There is normal right ventricular wall thickness. The right ventr icular systolic function is normal. ATRIA The left atrium is borderline dilated. The right atrium size is normal. The interatrial septum is int act with no evidence for an atrial septal defect or patent foramen ovale as noted on 2-D or Doppler i maging. AORTIC VALVE The aortic valve is normal in structure and function. Doppler and Color Flow revealed no significant aortic regurgitation. There is no significant aortic valvular stenosis. MITRAL VALVE The mitral valve is normal in structure and function. There is no evidence of mitral valve prolapse. There is no mitral valve stenosis. Doppler and Color-flow revealed trace mitral regurgitation. TRICUSPID VALVE The tricuspid valve is normal in structure and function. Doppler and Color Flow revealed trace tricus pid regurgitation with an estimated PAP of 33 mmHg. There is no tricuspid valve stenosis. PULMONIC VALVE The pulmonic valve is not well visualized. Doppler and Color Flow revealed no pulmonic valvular regur gitation. There is no pulmonic valvular stenosis. GREAT VESSELS The aortic root is normal in size. The ascending aorta is Mildly dilated at 3.8 cm The IVC is normal in size and collapses >50% with inspiration. PERICARDIAL EFFUSION There is no evidence of significant pericardial effusion. Critical Notification Critical Value: No <Conclusion> The left ventricular systolic function is normal and the ejection fraction is within normal range. Th e Ejection Fraction is 50-55%. There is normal LV segmental wall motion. Signed by : Elliott López, Electronically Approved : 06/07/2019 12:53:26
== END | disposition home or self-care (01) ==
LOC: ECHO 10:42
PROVIDERS: ATTEND Internal Medicine Cardiovascular Disease
DX: I51.7 Cardiomegaly (principal); I21.4 Non-ST elevation (NSTEMI) myocardial infarction
CPT/HCPCS: 93306